=== PATIENT | female | born 1995 | race African-American/Black ===

== ENCOUNTER 2016-05-16 01:45 | Emergency (ER) | payer BC ==
[2016-05-16] MEDS ORDERED: ONDANSETRON 4 MG VIAL ONE (04:23)
[2016-05-16] MEDS ORDERED: CEFTRIAXONE 1 GM VIAL ONE (04:23)
[2016-05-16] MEDS ORDERED: SODIUM CHLORIDE 0.9% 100 ML IV ONE (04:24)
[2016-05-16] MEDS ORDERED: KETOROLAC 30 MG/ML VIAL ONE (04:24)
== END 2016-05-16 05:09 | disposition home or self-care (01) ==
LOC: ER 01:45
DX: N30.01 Acute cystitis with hematuria (principal)
CPT/HCPCS: 36415; 80053; 81001; 83690; 84703; 85025; 87077; 87088; 87186; 96365; 96375